=== PATIENT | female | born 1995 | race Caucasian/White ===

== ENCOUNTER 2019-09-16 08:08 | Outpatient (CLI) | payer OTHER | END 2019-09-16 08:22 | disposition home or self-care (01) | LOC: RX STUDY 08:08 | PROVIDERS: ATTEND Internal Medicine Gastroenterology | DX: D64.89 Other specified anemias (principal) ==

== ENCOUNTER 2021-04-15 07:56 | Outpatient (CLI) | payer OTHER | END 2021-04-15 07:57 | disposition home or self-care (01) | LOC: RX STUDY 07:56 | PROVIDERS: ATTEND Internal Medicine Gastroenterology | DX: K52.9 Noninfective gastroenteritis and colitis, unspecified (principal) ==